=== PATIENT | male | born 1980 | race African-American/Black ===

== ENCOUNTER 2017-12-11 11:56 | Emergency (ER) | payer MEDICAID ==
[~2017-12-11] VITALS: Ht 167.6 cm; Wt 81.8 kg
[2017-12-11] MEDS ORDERED: KETOROLAC TROMETHAMINE 60 MG/2 ML VIAL IM ONE (12:30)
[2017-12-11 13:44] VITALS: BP 141/85
== END 2017-12-11 15:09 | disposition home or self-care (01) ==
LOC: EMS 11:57
DX: S92.421A Displaced fracture of distal phalanx of right great toe, initial encounter for closed fracture (principal); R03.0 Elevated blood-pressure reading, without diagnosis of hypertension; W20.8XXA Other cause of strike by thrown, projected or falling object, initial encounter; Y93.89 Activity, other specified; Y92.89 Other specified places as the place of occurrence of the external cause; Y99.8 Other external cause status
CPT/HCPCS: 73630; 96372; 99284; J1885